=== PATIENT | female | born 1995 | race Hispanic/Latino ===

== ENCOUNTER 2024-03-06 21:42 | Emergency (ER) | payer BC, MEDICAID ==
[~2024-03-06] VITALS: Ht 157.5 cm; Wt 103.9 kg
--- NOTE | 2024-03-06 22:12 | ERN ---
ED Note History of Present Illness Stated Complaint: INSULIN NEEDLE BROKE OFF IN STOMACH Chief Complaint: Foreign Body Time Seen by MD: 21:48 Dictation: PATIENT IS A 28-YEAR-OLD DIABETIC FEMALE HERE STATES SHE WAS INJECTING HER RIGHT LOWER ABDOMEN WITH INSULIN, THE NEEDLE BROKE OFF SHE BELIEVES IN HER RIGHT LOWER ABDOMEN IN THE ABDOMINAL GIRDLE. NO PAIN NO BLEEDING. UNABLE TO DISCERN I NJECTION SITE AT THIS TIME. Allergies: Coded Allergies: No Known Allergies (Unverified Allergy, Unknown, 03/06/24) Past Medical History Past Medical History: No Pertinent History Surgical History: Cholecystectomy Surgical History Other: TUBAL LIGATION History: Not Applicable LMP: Mar 06, 2024 RN Note Reviewed/Agreed w/[facility]: Yes Review of System Dictation CONSTITUTIONAL: Negative except for HPI HEAD/FACE: Negative except for HPI EENT: Negative except for HPI RESPIRATORY: Negative except for HPI GASTROINTESTINAL/ABDOMINAL: Negative except for HPI possible foreign body/ GENITOURINARY: Negative except for HPI MUSCULOSKELETAL: Negative except for HPI INTEGUMENTARY: Negative except for HPI NEUROLOGICAL/PSYCH: Negative except for HPI HEMATOLOGIC/LYMPHATIC: Negative except for HPI All Systems Negative, Except as noted above. 13 point review of systems assessed and all negative except for above. Initial Vital Sign VS Vital Signs Date Time Temp Pulse Resp B/P (MAP) Pulse Ox O2 Delivery O2 Flow Rate FiO2 03/06/24 21:47 99.9 80 20 147/95 98 Room Air 03/06/24 23:21 0 21 Physical Exam Dictation Vital Signs reviewed no pain General Appearance: Alert, oriented x 3, no acute distress, well developed, nourished. Head and Face: non-traumatic. Eyes: PERRL, pink conjunctivas, eyelid no trauma, anterior chamber with arcus senilis. Ears: Pinnas intact and no signs of trauma or erythema ear canals clear and no discharge TM no erythema Nose: No discharge, no bleeding. Oropharynx: Mouth normal, tongue pink, pharynx clear,no erythema, tonsils no exudates, no abscesses noted, mucous membrane moist Neck: Supple, non-tender, no thyromegaly, no masses, no JVD, no bruits Breast:Deferred Chest:No tenderness, no crepitus, no paradoxical movement, no retractions Lungs:Clear, well-ventilated, symmetric, no rales, no wheezing, no rhonchi, no stridor, good breath sounds bilaterally Heart: Regular rate, regular rhythm, no murmur, no gallops Vascular: no peripheral edema, Abdomen: Soft, positive bowel sounds, nondistended, no guarding, nontender, no rebound, no masses no hepatomegaly, no splenomegaly, no Eli's sign, no hernias. Patient unable to localize her puncture wound from her subcutaneous insulin today. No tenderness no erythema Rectal: Deferred Genital: Deferred Neurological: Normal speech, motor function intact, sensory function intact Musculoskeletal: Neck nontender, full range of motion, back nontender, full range of motion, Extremities: nontender, full range of motion Skin: Color pink, dry, no turgor, no rash, no lacerations, no abrasions, no contusions. Lymphatic: Deferred Results (Laboratory/Radiology) Laboratory/Radiology KUB demonstrates no radiopaque foreign body in subcutaneous fat abdomen Labs Reviewed?: Yes ED Course ED Course Orders Procedure Category Date Status Time Abd 1vw RAD 03/06/24 Resulted 22:11 Vital Signs Date Time Temp Pulse Resp B/P (MAP) Pulse Ox O2 Delivery O2 Flow Rate FiO2 03/06/24 23:21 98.2 75 16 142/88 100 Room Air* 0 21 03/06/24 21:47 99.9 80 20 147/95 98 Room Air 2315 case discussed with patient and her we will be given the name of the surgeon on-call to follow up in the next day or two. Medical Decision Making MDM Medical discharge making based on KUB to determine radiopaque foreign body subcutaneous area of abdomen No foreign body noted Discharged home to follow up with Dr. Segundo DX & DISP Disposition: Discharge Departure Impression: Primary Impression: Sensation of foreign body Condition: Stable Additional Instructions: Follow-up with primary care provider in 1 to 2 days. Take medications as directed here in the emergency room. Okay to continue home medications unless otherwise discussed during your visit in the emergency room today. Return to yo ur nearest emergency room if symptoms worsen or if there is no improvement. Call 911 if you need immediate assistance. Take Tylenol or Motrin [id number] as needed and if no contraindications are present. Increase oral hydration. A wound culture or urine culture was ordered here in the emergency room department please follow-up with primary care provider and advise them to get repeat ports from our facility. If you had any Natan wrap/splints that were applied here, please do not remove them until you see your primary care or specialty. Diet and activity as tolerated, call surgeon for appointment in the next 1-2 days if any pain or discomfort. Referrals: SELWYN SANTAMARIA MD (PCP) LILY BOUCHER MD Time of Disposition: 23:18 I have reviewed the case, and I agree with, Diagnosis and Plan PORTER GARCIA NP Mar 06, 2024 22:12 REECE FARMER DO Mar 07, 2024 04:31
[2024-03-06 23:21] VITALS: BP 142/88; PULSE 75; RESP 16; TEMP 98.3; O2SAT 100
--- NOTE | 2024-03-06 23:45 | HMCIMG ---
ABD 1VW HISTORY: Foreign body COMPARISON: None FINDINGS: A frontal projection of the abdomen was obtained. A nonspecific bowel gas pattern is seen. Postcholecystectomy changes are seen. No evidence of radiopaque foreign body is seen. Fecal material is seen in the colon. Degenerative changes of the thoracolumbar spine are noted. IMPRESSION: 1. A nonspecific bowel gas pattern is seen.
== END 2024-03-06 23:29 | disposition home or self-care (01) ==
LOC: EDH 21:42
DX: R09.A9 Foreign body sensation, other site (principal); R10.31 Right lower quadrant pain; E11.9 Type 2 diabetes mellitus without complications; Z90.49 Acquired absence of other specified parts of digestive tract; Z98.51 Tubal ligation status
CPT/HCPCS: 74018